=== PATIENT | male | born 1980 | race Caucasian/White ===

== ENCOUNTER 2018-12-23 19:52 | Emergency (ER) | payer OTHER ==
[~2018-12-23] VITALS: Ht 172.7 cm; Wt 86.2 kg
[2018-12-23 19:52] VITALS: BP 114/41
[2018-12-23 20:37] VITALS: BP 114/41
== END 2018-12-23 20:37 ==
LOC: MED 19:52
DX: Z02.89 Encounter for other administrative examinations (principal); I10 Essential (primary) hypertension; E11.9 Type 2 diabetes mellitus without complications; Z21 Asymptomatic human immunodeficiency virus [HIV] infection status
CPT/HCPCS: 99283

== ENCOUNTER 2023-07-29 15:14 | Emergency (ER) | payer OTHER ==
[~2023-07-29] VITALS: Ht 172.7 cm; Wt 90.7 kg
[2023-07-29 15:54] VITALS: BP 120/68; PULSE 94; RESP 18; TEMP 98.4; O2SAT 96
[2023-07-29] MEDS ORDERED: DOLU50TA PO (16:05)
[2023-07-29] MEDS ORDERED: EMTR1TAB12 PO (16:05)
[2023-07-29] MEDS ORDERED: TRU PO (16:07)
[2023-07-29] MEDS: EMTRICITABINE/TENOFOVIR 200-300MG 1 TAB PO SCH (16:36)
== END 2023-07-29 16:45 ==
LOC: MED 15:14
DX: Z02.89 Encounter for other administrative examinations (principal); Z76.0 Encounter for issue of repeat prescription; E11.9 Type 2 diabetes mellitus without complications; I10 Essential (primary) hypertension; Z79.4 Long term (current) use of insulin; Z79.899 Other long term (current) drug therapy
CPT/HCPCS: 99283